=== PATIENT | male | born 1965 | race Caucasian/White ===

== ENCOUNTER 2024-02-29 09:15 | Day surgery (SDC) | payer OTHER, SELFPAY ==
[2024-02-29 11:07] LABS: Glucose - Point of Care 212 mg/dl (70-99)
--- NOTE | 2024-02-29 11:16 | ITS.CL.CARDI ---
Rivet Machine Operator - Cardioversion
Cardioversion
Procedure Report:
Date of Procedure:
Procedure: Cardioversion
Indication: Symptomatic atrial fibrillation
Performing Physician: Alcides Tamayo MD
Technique: The patient was brought to the holding area. Signed informed consent was obtained. A time out was called and performed. The patient was anesthetized by the anesthesia service. Anticoagulation status was reviewed and appropriate. R2 pads
were placed anteriorly and posteriorly. A 200 J synchronized biphasic shock restored atrial paced rhythm without significant bradycardia. There were no complications.
Conclusion: Uncomplicated cardioversion from atrial fibrillation to atrial paced.
Recommendation: Routine post cardioversion care. Continue long-term anticoagulation.
== END 2024-02-29 11:52 | disposition home or self-care (01) ==
LOC: CATH 09:15
PROVIDERS: ATTENDING PHYSICIAN Internal Medicine Cardiovascular Disease; FAMILY PHYSICIAN Family Medicine; OTHER PHYSICIAN Internal Medicine Cardiovascular Disease
DX: I48.91 Unspecified atrial fibrillation (principal); I10 Essential (primary) hypertension; E78.00 Pure hypercholesterolemia, unspecified; E11.9 Type 2 diabetes mellitus without complications; F17.290 Nicotine dependence, other tobacco product, uncomplicated; Z79.01 Long term (current) use of anticoagulants; Z79.84 Long term (current) use of oral hypoglycemic drugs; Z79.4 Long term (current) use of insulin
CPT/HCPCS: 82962; 92960; 93005

== ENCOUNTER → 2024-07-11 06:26 | Day surgery (SDC) | payer OTHER, SELFPAY ==
[2024-07-11 07:31] LABS: Glucose - Point of Care 112 mg/dl (70-99)
== END ==
LOC: GI 06:26
PROVIDERS: ATTENDING PHYSICIAN Internal Medicine Gastroenterology
DX: Z12.11 Encounter for screening for malignant neoplasm of colon (principal); D12.4 Benign neoplasm of descending colon; K57.30 Diverticulosis of large intestine without perforation or abscess without bleeding; K56.2 Volvulus; Z86.010 Personal history of colon polyps
CPT/HCPCS: 45385; 88305; 82962

== ENCOUNTER 2024-12-08 09:14 | Day surgery (SDC) | payer OTHER, SELFPAY ==
[2024-12-08 09:44] VITALS: BMI 40.5
[2024-12-08 10:01] LABS: Glucose - Point of Care 149 mg/dl (70-99)
[2024-12-08] MEDS: ELIQUIS 5 MG PO (11:05)
--- NOTE | 2024-12-08 11:24 | ITS.CL.CARDI ---
Bakery Manager - Cardioversion
Cardioversion
Procedure Report:
Date of Procedure: Dec 08 2024
Procedure: Cardioversion
Indication: Symptomatic atrial fibrillation
Performing Physician: Leobardo Covington DO, FACC
Technique: The patient was brought to the holding area. Signed informed consent was obtained. A time out was called and performed. The patient was anesthetized by the anesthesia service. Anticoagulation status was reviewed and appropriate. R2 pads
were placed anteriorly and posteriorly. A 250 J synchronized biphasic shock restored normal sinus rhythm without significant bradycardia. There were no complications.
Conclusion: Uncomplicated cardioversion from atrial fibrillation to sinus rhythm.
Recommendation: Routine post cardioversion care. Continue watermelon inspector anticoagulation.
== END 2024-12-08 11:24 | disposition home or self-care (01) ==
LOC: CATH 09:14
PROVIDERS: ATTENDING PHYSICIAN Nuclear Medicine Nuclear Cardiology; FAMILY PHYSICIAN Family Medicine; OTHER PHYSICIAN Internal Medicine Cardiovascular Disease
DX: I48.91 Unspecified atrial fibrillation (principal); I42.8 Other cardiomyopathies; I44.7 Left bundle-branch block, unspecified; E78.5 Hyperlipidemia, unspecified; E11.9 Type 2 diabetes mellitus without complications; I34.0 Nonrheumatic mitral (valve) insufficiency; Z95.810 Presence of automatic (implantable) cardiac defibrillator; Z79.01 Long term (current) use of anticoagulants; Z79.4 Long term (current) use of insulin; Z79.84 Long term (current) use of oral hypoglycemic drugs; Z79.85 Long-term (current) use of injectable non-insulin antidiabetic drugs
CPT/HCPCS: 82962; 92960; 93005

== ENCOUNTER 2025-03-09 07:51 | Day surgery (SDC) | payer OTHER, SELFPAY ==
[2025-02-26 10:23] VITALS: BMI 44.9
[2025-02-26 10:33] LABS: % Basophils 0.9 % (0-2); % Immature Granulocytes 0.9 % (0-0.5); % Lymphocytes 28.2 % (20.5-51.1); % Monocytes 7.5 % (1.7-9.3); % Neutrophils 60.5 % (42.2-75.2); Absolute Basophils 0.1 10^3/uL (0-0.2); Absolute Eosinophils 0.1 10^3/uL (0-0.7); Absolute Immature Granulocytes 0.1 10^3/uL (0-0.05); Absolute Monocytes 0.5 10^3/uL (0.1-0.6); Absolute Neutrophils 4.2 10^3/uL (1.4-6.5); Hematocrit 48.7 % (39.0-52.0); Hemoglobin 16.5 g/dL (13.0-18.0); Mean Corp Hgb Conc. 33.9 g/dL (33.0-37.0); Mean Corpuscular Volume 88.5 fL (80.0-94.0); Mean Platelet Volume 10.2 fL (7.4-10.4); Nucleated Red Blood Cells % 0 % (-); Platelet Count 170 10^3/uL (130-400); Red Cell Dist. Width 13.1 % (11.5-14.5)
[2025-02-26 10:44] LABS: ALT (SGPT) 20 U/L (0-50); AST (SGOT) 22 U/L (17-59); Albumin 4.4 g/dl (3.5-5.0); Alkaline Phosphatase 38 U/L (38-126); Blood Urea Nitrogen 38 mg/dl (9-20); Carbon Dioxide 28 mmol/L (22-30); Chloride 103 mmol/L (98-107); Estimated Creatinine Clearance 77 ml/min; Glucose 130 mg/dl (70-99); Magnesium 2.1 mg/dl (1.6-2.3); Potassium 4.8 mmol/L (3.5-5.1); Sodium 140 mmol/L (135-145); Total Bilirubin 1.1 mg/dl (0.2-1.3); Total Protein 6.6 g/dl (6.3-8.2); eGFR > 60.00
[2025-02-26 11:07] LABS: INR 1.24; PT 16.1 Sec (11.4-14.6)
[2025-03-09] VITALS (14 sets, daily range): BP systolic 100–124; BP diastolic 49–79; BMI 41.6
[2025-03-09] MEDS: PEPCID 20 MG IV (09:10)
[2025-03-09] MEDS: TYLENOL 1000 MG PO (09:11)
[2025-03-09 09:35] LABS: Glucose - Point of Care 195 mg/dl (70-99)
[2025-03-09] MEDS: NOVOLOG vial 2 UNITS SC ×2 (09:45→13:51)
[2025-03-09 11:33] LABS: Glucose - Point of Care 153 mg/dl (70-99)
[2025-03-09 11:37] LABS: ACT-LR - POC 356 Seconds (116-155)
[2025-03-09 11:54] LABS: ACT-LR - POC 343 Seconds (116-155)
[2025-03-09 12:16] LABS: ACT-LR - POC 295 Seconds (116-155)
[2025-03-09 13:06] LABS: Glucose - Point of Care 190 mg/dl (70-99)
--- NOTE | 2025-03-09 14:28 | ITS.CL.ABL ---
Addendum entered and electronically signed by Tulio Jackman MD 03/09/25 15:05:
At the end of the study once all catheters were removed, fluoroscopic imaging finds stable positioning of the right atrial lead, right ventricular lead and the left coronary sinus lead.
Additionally interrogation of the device finds normal stable function of the ICD and multi lead system.
The device was reprogrammed to VT VF detections on.
Original Note:
Pull Through Hooker - Ablation
Ablation
Procedure Report:
ELECTROPHYSIOLOGIC STUDY AND POSSIBLE ABLATION
DATE: March 09, 2025
Primary Care Provider: Suha Merchant M.D.
Primary Claim Analyst: Bambi Jackman M.D.
INDICATION:
Symptomatic Atrial Fibrillation.
Paroxysmal
HISTORY: See H and P.
Symptomatic AF, poorly controlled with attempted medical therapy.
He has heart failure with reduced ejection fraction in the setting of dilated/nonischemic cardiomyopathy. LVEF 35%, NYHA class 2 (on Aldactone, carvedilol, Entresto at maximum tolerated doses, and also Farxiga)
He has developed recurrent symptomatic atrial fibrillation which has been associated with decompensated heart failure with reduced ejection fraction.
He also has prior ENGINEERING COORDINATOR-D in place, CKD, diabetes mellitus, obesity, prior tobacco use.
HAS-BLED: 2
Age
Abnormal Renal Function
CHADSVASc: 3
HFrEF, NYHA class 2, LVEF 35%
HTN
DM
PRESENTING RHYTHM: SR
HISTORY: See H and P.
Symptomatic AF, poorly controlled with attempted medical therapy.
ANTICOAGULATION: Apixaban 5 mg twice daily
'TIME-OUT': called and confirmed.
SEDATION/ANESTHESIA: provided via the anesthesia department using general anesthesia.
PROCEDURE:
The multichamber/ENGINEERING COORDINATOR defibrillator was interrogated and reprogrammed to tachyarrhythmia detections off.
Ultrasound Guidance with real-time visualization of needle insertion and vessel patency performed by vt for femoral venous Vascular Access.
Under real-time US guidance, the needle was advanced with negative pressure into the vein. The needle was seen entering the vessel lumen with a good return of dark red flow, the syringe was removed, non-pulsatile, dark red blood low was noted and
the wire was passed without difficulty, then the needle was removed. US confirmed the wire was in the vein, not going into an artery,
Images were taken and saved for the patient's permanent record. Imaging findings typical femoral venous anatomy. Direct visualization of needle puncture into the femoral vein was observed and recorded.
A decapolar CS catheter was placed within the CS for mapping and pacing.
The intracardiac ultrasound catheter was positioned in the RA for continuous intracardiac ultrasound imaging.
Heparin bolus and infusion to target ACT at 300 -350 seconds was administered. Transseptal puncture was performed. This entailed advancing a sheath with dilator into the superior vena cava and withdrawing both (monitoring intracardiac ultrasound,
fluoroscopy and tip pressure) with the tip oriented toward the atrial septum. The fossa ovalis was engaged (indicated by sudden displacement of the sheath tip as well as tenting of the fossa seen on intracardiac ultrasound).
The bSafe transseptal system was used. Left atrial catheter position was confirmed by echocardiographic imaging and fluoroscopy followed by RF delivery using the Yakimbi system resulting in successful LA access with pressure monitoring
demonstrating LA pressure waveforms (LA mean pressure 12 mm Hg). The sheath was advanced over the dilator and positioned in the left atrium.
The Singh Grid multipolar mapping catheter was initially positioned through the transseptal sheath for high density mapping.
Geometry and voltage mapping was performed using the Singh multipolar grid catheter. Ensite-X was utilized for three-dimensional electroanatomical mapping.
A 3-D map was created using Ensite-X in Voxel mode. A 3-D reconstructed CT image was compared to the 3-D Navex map to assist in anatomic evaluation, mapping and ablation.
The [employer] PFA catheter and system was used for cardiac ablation. Catheter positioning was guided and confirmed using both I.C.E. and fluoroscopy.
Ablation strategy consisted of pulmonary venous isolation as well as targeting extra PV contributors of atrial fibrillation:
- Pulsed electric field energy was delivered to the ostium of the pulmonary veins (left common PV, right superior and right inferior PV ) in both a basket and flower configuration to achieve pulmonary venous ostial electrical isolation
- Additional targets were identified with electroanatomical voltage mapping finding areas of low voltage and complex fractionated electrograms. These areas can be sites for the formation of rotors which can drive and maintain atrial fibrillation.
These areas are known to be significant contributors to initiation and perpetuation of atrial fibrillation. This consisted of the posterior wall of the left atrium. Pulsed electric field energy was given in the flower configuration to isolate the
posterior wall of the left atrium.
- Then, additional mapping demonstrated further targets of extra PV contributors of atrial fibrillation at the floor of the left atrium. This required additional energy delivery in the flower configuration low on the floor of the left atrium
between the right inferior and left inferior pulmonary veins creating a low floor line of ablation. At the completion of ablation at the targeted extra PV sites, post ablation mapping finds that the targeted complex fractionated electrograms are
eliminated rendering the sites no longer able to contribute to atrial fibrillation. Post ablation high output pacing at the targeted sites demonstrate lack of capture / exit block.
Post ablation mapping additionally finds that all PVPs were eliminated at each vein demonstrating entrance block. Also pacing around the the circumference of the ostia was performed at 10 ma and 2.0 msec output to assess for exit block. This
demonstrated electrical isolation at each of the pulmonary vein ostia (LSPV, LIPV, RSPV, RIPV).
Programmed electrostimulation including burst atrial pacing as well as delivery of atrial decremental extrastimuli down to atrial ERP failed to induce any sustained arrhythmias.
I.C.E. :
Pre-Ablation Post-Ablation
LVEF: 35 % 35 %
WMA: Global Global
Pericardial effusion: None None
COMPLICATIONS:
None
SUMMARY:
- Mapping and ablation to isolate the PVs .
- Additional AF ablation sets after PVI X 2.
- LA posterior wall ablation
- LA floor ablation
- 3-D Electroanatomical Mapping
- Intracardiac Ultrasound
- Ultrasound guidance for vascular access
Post ablation, I discussed today's findings and results with the patient's daughter,Shweta.
RECOMMENDATIONS:
- Observe in monitored bed.
- Maintain oral anticoagulation.
- Office visit with [facility] has been scheduled for May 18, 2025.
- Continue cardiovascular care with Dr Bambi Jackman
Copy to:
Suha Merchant M.D.
Bambi Jackman M.D.
--- NOTE | 2025-03-09 15:51 | W.PN.UPDATE ---
Update Note
Progress Note Update
Pt seen post PFA. Right groin site w/vascade closure, no ht/bleeding, OOB ambulating, urinating without difficulty. Post EKG NSR w/VPacing 64, no acute changes. Resume Eliquis tonight at usual time. Followup at [facility] as scheduled. Home today if gorin
site/tele remain stable.
== END 2025-03-09 15:55 | disposition home or self-care (01) ==
LOC: CATH 07:51
PROVIDERS: ATTENDING PHYSICIAN Internal Medicine Cardiovascular Disease; FAMILY PHYSICIAN Family Medicine; OTHER PHYSICIAN Internal Medicine Cardiovascular Disease
DX: I48.0 Paroxysmal atrial fibrillation (principal); I11.0 Hypertensive heart disease with heart failure; E78.5 Hyperlipidemia, unspecified; I25.10 Atherosclerotic heart disease of native coronary artery without angina pectoris; I44.7 Left bundle-branch block, unspecified; E11.22 Type 2 diabetes mellitus with diabetic chronic kidney disease; G47.33 Obstructive sleep apnea (adult) (pediatric); I83.90 Asymptomatic varicose veins of unspecified lower extremity; K21.9 Gastro-esophageal reflux disease without esophagitis; Z86.0100 Personal history of colon polyps, unspecified; K64.9 Unspecified hemorrhoids; E66.01 Morbid (severe) obesity due to excess calories; Z68.41 Body mass index [BMI] 40.0-44.9, adult; I42.0 Dilated cardiomyopathy; I13.0 Hypertensive heart and chronic kidney disease with heart failure and stage 1 through stage 4 chronic kidney disease, or unspecified chronic kidney disease; I49.3 Ventricular premature depolarization; Z01.810 Encounter for preprocedural cardiovascular examination; Z79.01 Long term (current) use of anticoagulants; Z79.4 Long term (current) use of insulin; Z79.84 Long term (current) use of oral hypoglycemic drugs; Z79.85 Long-term (current) use of injectable non-insulin antidiabetic drugs; Z79.899 Other long term (current) drug therapy; Z87.19 Personal history of other diseases of the digestive system; Z87.891 Personal history of nicotine dependence; Z88.5 Allergy status to narcotic agent; I50.20 Unspecified systolic (congestive) heart failure; Z95.810 Presence of automatic (implantable) cardiac defibrillator
CPT/HCPCS: 36415; 80053; 82962; 83735; 85025; 85347; 85610; 86850; 86900; 86901; 93005; 93655; 93656; 93657; C1730; C1732; C1733; C1760; C1766; C1769; C1892; C1894

== ENCOUNTER → 2025-06-04 14:48 | Outpatient (REF) | payer OTHER, SELFPAY | LOC: HWRCS 14:48 | PROVIDERS: ATTENDING PHYSICIAN Physician Assistant Medical; FAMILY PHYSICIAN Family Medicine | DX: I48.0 Paroxysmal atrial fibrillation (principal); I42.0 Dilated cardiomyopathy; I50.20 Unspecified systolic (congestive) heart failure | CPT/HCPCS: 93306 ==

== ENCOUNTER → 2025-06-10 10:32 | Outpatient (REF) | payer OTHER, SELFPAY | LOC: DHSLP 10:32 | PROVIDERS: ATTENDING PHYSICIAN Internal Medicine Cardiovascular Disease; FAMILY PHYSICIAN Family Medicine | DX: G47.33 Obstructive sleep apnea (adult) (pediatric) (principal); R09.02 Hypoxemia | CPT/HCPCS: 95800 ==

== ENCOUNTER → 2025-09-11 07:49 | Outpatient (REF) | payer OTHER, SELFPAY ==
--- NOTE | 2025-09-11 09:08 | CARDSERVDEF ---
Echocardiogram with Definity completed after protocol screening completed. Allergies verified.
Patent IV site: _Left antecubital 22 G PC ____
IV site flushed with 0.9% NaCl pre and post administration.
Diluted bolus method utilized to enhance visualization of ventricular leung.
Total volume given: _8___ mL
Patient tolerated all procedures well without complications.
Heplock D/C ed at 0906,site clear, no redness,no edema. Pressure held for few minutes as on Eliquis, no bleeding, 2x2 applied and taped. Pt offers no complaints.
== END ==
LOC: RCS 07:49
PROVIDERS: ATTENDING PHYSICIAN Internal Medicine Cardiovascular Disease; FAMILY PHYSICIAN Family Medicine
DX: I50.20 Unspecified systolic (congestive) heart failure (principal)
CPT/HCPCS: 93307; Q9957

== ENCOUNTER → 2025-09-28 09:18 | Outpatient (REF) | payer OTHER, SELFPAY | LOC: RAD 09:18 | PROVIDERS: ATTENDING PHYSICIAN Nurse Practitioner Family | DX: Z87.891 Personal history of nicotine dependence (principal) | CPT/HCPCS: 71046 ==